=== PATIENT | female | born 1990 | race African-American/Black ===

== ENCOUNTER 2016-11-29 23:03 | Emergency (ER) | payer OTHER ==
[~2016-11-29] VITALS: Ht 149.9 cm; Wt 127.0 kg
[~2016-11-29 23:03] MED LIST: AZITHROMYCIN250 MG PO; FLONASE16 G1 BOTH NARES; GUIATUSS100 MG/5 M PO; KEFLEX500 MG PO; MACROBID100 MG PO; MOTRIN800 MG PO; NITROFURANTOIN100 MG PO; NO HOME MEDICATIONS; NOHOMEMEDS; PERCOCET 5/31 TABLET PO; PERCOCET 7.51 TABLET PO; PREDNISONE20 MG PO; TESSALON PERLE100 MG PO; ULTRAM50 MG PO; VALACYCLOVIR1000 MG PO; VENTOLIN HFA18 GM IH
[2016-11-29 23:05] VITALS: BP 128/92
[2016-11-29 23:31] LABS: HEMATOCRIT 39.1 % (36.0-46.0); MCH 25.1 PG (29.0-34.0); MCHC 31.7 G/DL (30.0-36.0); PLATELET COUNT 296 K/uL (156-360); RBC DIS.WIDTH-CV 13.7 % (11.8-14.6); RBC DIS.WIDTH-SD 39.1 % (39-53); RED BLOOD COUNT 4.95 M/uL (3.80-5.20)
[2016-11-29 23:37] LABS: ADD MIUA? YES; BILIRUBIN NEGATIVE; BLOOD LARGE; COLOR YELLOW ((YELLOW)); GLUCOSE (STRIP) NEGATIVE; KETONES NEGATIVE; LEUKOCYTES TRACE; NITRITE NEGATIVE; PROTEIN (STRIP) NEGATIVE; SPECIFIC GRAVITY 1.026 (1.000-1.030); UROBILINOGEN 0.2 MG/DL (0.2-1.0)
[2016-11-29 23:45] LABS: BACTERIA NONE SEEN /HPF; EPITHELIAL CELLS RARE /HPF; MUCUS TRACE /LPF; RED BLOOD CELLS 15-20 /HPF (0-5); UCUL ADDED? NO
[2016-11-30] MEDS ORDERED: PRENATAL ONE T1 EACH PO (01:41)
== END 2016-11-30 01:47 | disposition home or self-care (01) ==
LOC: EXP 23:03 → EME 23:03 → EXP 11-30 01:47
DX: O20.0 Threatened abortion (principal); Z3A.01 Less than 8 weeks gestation of pregnancy
CPT/HCPCS: 76801; 81003; 84702; 85027; 99281; 99284

== ENCOUNTER 2017-07-19 04:31 | Inpatient (IN) | payer OTHER ==
[~2017-07-19] VITALS: Ht 149.9 cm; Wt 160.1 kg
[~2017-07-19 04:31] MED LIST changes: +PRENATAL ONE T1 EACH PO
[2017-07-19 05:19] VITALS: BP 138/92
[2017-07-19 05:30] LABS: EOSINOPHIL (%) 0.4 % (0-5); HEMATOCRIT 32.7 % (36.0-46.0); IMMATURE GRANULOCYTE (%) 2.8 % (0.0-0.7); IMMATURE GRANULOCYTE COUNT 0.2 K/uL; INSTRUMENT ABS NEUTROPHIL CT 3.1 K/uL; LYMPHOCYTE COUNT 1.7 K/uL (1.0-2.8); MCH 23.6 PG (29.0-34.0); MCHC 30.6 G/DL (30.0-36.0); MCV 77.1 FL (83-99); MEAN PLAT.VOLUME 11.4 uM^3 (9.5-12.4); MONOCYTE (%) 8.1 % (3-12); MONOCYTE COUNT 0.4 K/uL (0-0.8); NEUTROPHIL (%) 57.5 % (45-76); NEUTROPHIL COUNT 3.1 K/uL (1.8-6.4); PLATELET COUNT 204 K/uL (156-360); RBC DIS.WIDTH-CV 14.5 % (11.8-14.6); RBC DIS.WIDTH-SD 39.5 % (39-53); RED BLOOD COUNT 4.24 M/uL (3.80-5.20); WHITE BLOOD COUNT 5.5 K/uL (4.1-10.2)
[2017-07-19 10:26] VITALS: BP 140/86
== END 2017-07-19 12:25 | disposition short-term general hospital (02) | DRG 781 ==
LOC: 2WEST 04:31 → 2SOUTH 12:08 → 2WEST 12:25 → 2SOUTH 14:49
PROVIDERS: Obstetrics & Gynecology Obstetrics
DX: O99.213 Obesity complicating pregnancy, third trimester (principal); Z3A.39 39 weeks gestation of pregnancy; E66.01 Morbid (severe) obesity due to excess calories; Z68.45 Body mass index [BMI] 70 or greater, adult; O36.63X0 Maternal care for excessive fetal growth, third trimester, not applicable or unspecified; F12.90 Cannabis use, unspecified, uncomplicated; O26.03 Excessive weight gain in pregnancy, third trimester; O99.323 Drug use complicating pregnancy, third trimester
CPT/HCPCS: 85025; 86850; 86900; 86901; J1100; J1580; J2274; J2405; J7050; J7120